=== PATIENT | female | born 1940 | race Two or more races ===

== ENCOUNTER 2018-07-13 12:45 | Outpatient (CLI) | payer MEDICARE, BC | END 2018-07-13 23:59 | disposition home or self-care (01) | LOC: WOU 12:45 | PROVIDERS: ATTEND Podiatrist Foot & Ankle Surgery | DX: I83.223 Varicose veins of left lower extremity with both ulcer of ankle and inflammation (principal); L97.328 Non-pressure chronic ulcer of left ankle with other specified severity; L03.116 Cellulitis of left lower limb | CPT/HCPCS: 17250; A6402; Z7610 ==

== ENCOUNTER 2018-07-18 12:32 | Outpatient (CLI) | payer MEDICARE, BC ==
[2018-07-18 13:43] LABS: BASOPHILS % (AUTO) 0.4 % (0.0-2.0); EOSINOPHILS % (AUTO) 4.6 % (0.0-6.0); HEMATOCRIT 36 % (33-45); HEMOGLOBIN 11.7 g/dL (11.5-14.8); LYMPHOCYTES # (AUTO) 1.5 /CMM (0.8-4.8); LYMPHOCYTES % (AUTO) 19.9 % (20.0-44.0); MEAN CORPUSCULAR HGB CONC 32 g/dl (31.0-36.0); MEAN CORPUSCULAR VOLUME 89 fL (82-100); MONOCYTES # (AUTO) 0.5 /CMM (0.1-1.30); MONOCYTES % (AUTO) 6.5 % (2.0-12.0); NEUTROPHILS # (AUTO) 5.3 /CMM (1.8-8.9); NEUTROPHILS % (AUTO) 68.6 % (43.0-81.0); PLATELET COUNT (AUTO) 245 /CMM (150-450); RDW COEFFICIENT OF VARIATION 14.2 (11.5-15.0); RED BLOOD CELL COUNT(AUTO) 4.03 MIL/uL (4.0-5.2); WHITE BLOOD COUNT (AUTO) 7.8 K/uL (4.3-11.0)
[2018-07-18 13:47] LABS: C-REACTIVE PROTEIN < 0.2 mg/dL (0.0-0.9)
[2018-07-18 13:52] LABS: ALANINE AMINOTRANSFERASE 21 U/L (12-78); ALBUMIN 3.4 g/dL (3.4-5.0); ALKALINE PHOSPHATASE 165 U/L (46-116); ASPARTATE AMINOTRANSFERASE 17 U/L (15-37); BILIRUBIN,TOTAL 0.3 mg/dL (0.2-1.0); CALCIUM, SERUM 8.5 mg/dL (8.5-10.1); CARBON DIOXIDE 27 mmol/L (21-32); CHLORIDE 106 mmol/L (98-107); CREATININE 0.9 mg/dL (0.6-1.3); GLUCOSE 177 mg/dL (74-106); POTASSIUM 4.9 mmol/L (3.5-5.1); SODIUM SERUM 142 mmol/L (136-145); TOTAL PROTEIN, SERUM 6.9 g/dL (6.4-8.2); UREA NITROGEN, BLOOD 27 mg/dL (7-18)
[2018-07-18 14:03] LABS: INR 0.94 (0.87-1.13)
== END 2018-07-18 23:59 | disposition home or self-care (01) ==
LOC: LAB 12:32
PROVIDERS: ATTEND Podiatrist Foot & Ankle Surgery
DX: I87.2 Venous insufficiency (chronic) (peripheral) (principal); L97.309 Non-pressure chronic ulcer of unspecified ankle with unspecified severity; R60.0 Localized edema; E11.9 Type 2 diabetes mellitus without complications
CPT/HCPCS: 36415; 80053-TC; 85025-TC; 85652-TC; 85730-TC; 86140-TC

== ENCOUNTER 2018-07-20 13:25 | Outpatient (CLI) | payer MEDICARE, BC | END 2018-07-20 23:59 | disposition home or self-care (01) | LOC: WOU 13:25 | PROVIDERS: ATTEND Podiatrist Foot & Ankle Surgery | DX: T14.8XXA Other injury of unspecified body region, initial encounter (principal); X58.XXXA Exposure to other specified factors, initial encounter; Y92.89 Other specified places as the place of occurrence of the external cause; I70.203 Unspecified atherosclerosis of native arteries of extremities, bilateral legs | CPT/HCPCS: 93925; 93970; Z7610 ==

== ENCOUNTER 2018-07-24 12:45 | Outpatient (CLI) | payer MEDICARE, BC | END 2018-07-24 23:59 | disposition home or self-care (01) | LOC: WOU 12:45 | PROVIDERS: ATTEND Podiatrist Foot & Ankle Surgery | DX: I83.223 Varicose veins of left lower extremity with both ulcer of ankle and inflammation (principal); L97.328 Non-pressure chronic ulcer of left ankle with other specified severity; Z79.899 Other long term (current) drug therapy; R60.0 Localized edema; I83.899 Varicose veins of unspecified lower extremity with other complications | CPT/HCPCS: 11042; A6402; Z7610 ==

== ENCOUNTER 2018-07-31 12:30 | Outpatient (CLI) | payer MEDICARE, BC | END 2018-07-31 23:59 | disposition home or self-care (01) | LOC: WOU 12:30 | PROVIDERS: ATTEND Podiatrist Foot & Ankle Surgery | DX: I83.223 Varicose veins of left lower extremity with both ulcer of ankle and inflammation (principal); L97.328 Non-pressure chronic ulcer of left ankle with other specified severity; Z79.2 Long term (current) use of antibiotics; Z88.6 Allergy status to analgesic agent; E11.9 Type 2 diabetes mellitus without complications; Z79.4 Long term (current) use of insulin | CPT/HCPCS: 11042; A6402; Z7610 ==

== ENCOUNTER 2018-08-07 12:42 | Outpatient (CLI) | payer MEDICARE, BC | END 2018-08-07 23:59 | disposition home or self-care (01) | LOC: WOU 12:42 | PROVIDERS: ATTEND Podiatrist Foot & Ankle Surgery | DX: I83.223 Varicose veins of left lower extremity with both ulcer of ankle and inflammation (principal); E11.621 Type 2 diabetes mellitus with foot ulcer; L97.322 Non-pressure chronic ulcer of left ankle with fat layer exposed; Z79.4 Long term (current) use of insulin; Z79.899 Other long term (current) drug therapy | CPT/HCPCS: 11042; A6402; Z7610 ==

== ENCOUNTER 2018-08-14 14:00 | Outpatient (CLI) | payer MEDICARE, BC | END 2018-08-14 23:59 | disposition home or self-care (01) | LOC: WOU 14:00 | PROVIDERS: ATTEND Podiatrist Foot & Ankle Surgery | DX: I87.2 Venous insufficiency (chronic) (peripheral) (principal); L97.322 Non-pressure chronic ulcer of left ankle with fat layer exposed; R60.9 Edema, unspecified; L30.9 Dermatitis, unspecified; M25.572 Pain in left ankle and joints of left foot; Z79.899 Other long term (current) drug therapy; Z88.1 Allergy status to other antibiotic agents | CPT/HCPCS: A6402; G0463; Z7610 ==

== ENCOUNTER 2018-08-21 14:00 | Outpatient (CLI) | payer MEDICARE, BC | END 2018-08-21 23:59 | disposition home or self-care (01) | LOC: VASLAB 14:00 | PROVIDERS: ATTEND Surgery Vascular Surgery | DX: I87.2 Venous insufficiency (chronic) (peripheral) (principal); L97.322 Non-pressure chronic ulcer of left ankle with fat layer exposed; Z88.1 Allergy status to other antibiotic agents; Z88.8 Allergy status to other drugs, medicaments and biological substances | CPT/HCPCS: A6402; G0463; Z7610 ==

== ENCOUNTER 2018-08-24 12:45 | Outpatient (CLI) | payer MEDICARE, BC | END 2018-08-24 23:59 | disposition home or self-care (01) | LOC: WOU 12:45 | PROVIDERS: ATTEND Podiatrist Foot & Ankle Surgery | DX: I83.023 Varicose veins of left lower extremity with ulcer of ankle (principal); L97.322 Non-pressure chronic ulcer of left ankle with fat layer exposed; I83.892 Varicose veins of left lower extremity with other complications; Z79.4 Long term (current) use of insulin; Z79.899 Other long term (current) drug therapy | CPT/HCPCS: A6253; A6402; G0463; Z7610 ==